=== PATIENT | male | born 1990 | race Caucasian/White ===

== ENCOUNTER 2024-05-08 21:25 | Emergency (ER) | payer OTHER, SELFPAY ==
[2024-05-08] VITALS (23 sets, daily range): BP systolic 105–153; BP diastolic 66–111; PULSE 77–102; O2SAT 94–97; BMI 36.0
--- NOTE | 2024-05-08 21:29 | ECG_ITS ---
[facility] Test Date: 2024-05-08 Pat Name: LINO BRASHER Department: Room: - Gender: Male [employer] In[employer]: : 1990 Requested By: Order Number: [id number] Reading MD: KELLE CEBALLOS Measurements Intervals [place] Rate: 96 P: 68 ND: 144 QRS: 55 QRSD: 86 T: 53 QT: 338 QTc: 392 Interpretive Statements 1100 Sinus rhythm 9110 normal ECG No previous ECG available for comparison Electronically Signed On 05-09-2024 6:58:00 EST by KELLE CEBALLOS
--- NOTE | 2024-05-08 21:29 | XR_ITS ---
The [address] [address] Patient Name: LINO BRASHER MRN: [id number] date: 1990 Sex: M Assigned Patient Location: ER Current Patient Location: ED.MAIN Accession/Order Number: [id number] Exam Date: 05/08/2024 21:45 Report Date: 05/08/2024 23:19 At the request of: BRIAN DAVIS Procedure: XR chest 1V PORTABLE CHEST X-RAY. CLINICAL HISTORY: Fentanyl overdose COMPARISON: None. TECHNIQUE: Single AP portable chest radiograph. FINDINGS: TUBES AND LINES: None. LUNGS: Lungs are clear. PLEURA: No effusions or pneumothorax. HEART AND MEDIASTINUM: Within normal limits for portable technique. OSSEOUS STRUCTURES: No acute abnormality. XR/XR chest 1V IMPRESSION: No acute findings. Electronically authenticated by: JOSE L NATH Date: 05/08/2024 23:19
--- NOTE | 2024-05-08 21:39 | ED_ITS ---
HPI HPI - General Adult General Chief complaint: Overdose Stated complaint: OD Time Seen by Provider: 05/08/24 21:29 Source: patient and other Source information: EMS Mode of arrival: ambulance Limitations: altered mental status History of Present Illness HPI narrative: 33-year-old male presented for being unresponsive. Paramedics were called and they found an unresponsive person with sonorous breathing. The family had put him in the shower to try to wake him up but that was not successful. The paramedics gave 4 mg of Narcan and he awoke. He was released from residential yesterday. He is accompanied by law enforcement officers. Related Data Allergies Allergy/AdvReac Type Severity Reaction Status Date / Time No Known Drug Allergies Allergy Verified 05/08/24 21:31 Opioid HPI Opioid Management Most Recent Opioid Data: No Data to Display Review of Systems ROS Narrative A ten point review of systems is negative except as noted above. Exam Narrative Exam Narrative: Nurses note and vital signs reviewed and patient is not hypoxic. General: The patient appears in no acute respiratory distress. He is disheveled Skin: Warm, dry, no pallor noted. There is no rash noted. Head: Normocephalic, atraumatic Eye: Normal conjunctiva, no drainage, EOMI. PERRL Ears, Nose, Mouth, and Throat: oral mucosa is moist. Nares patent. Cardiovascular: Regular Rate and Rhythm, borderline tachycardia Respiratory: Patient is in no distress, no accessory muscle use, lungs are clear to auscultation, no wheezing, rales or rhonchi. Good air movement present Back: non-tender GI: Soft and nontender Musculoskeletal: The patient has no evidence of calf tenderness, no pitting edema, symmetrical pulses noted bilaterally Neurological: A&O x4, normal speech Psychiatric: Cooperative Constitutional Vital Signs, click to edit/add: Last Vital Signs Pulse 83 05/08/24 23:31 Resp 22 H 05/08/24 23:20 BP 114/88 05/08/24 23:31 Pulse Ox 95 05/08/24 23:43 O2 Del Method Room Air 05/08/24 21:40 O2 Flow Rate 2 05/08/24 21:40 Course Vital Signs Vital signs: Vital Signs Pulse Rate 101 H 05/08/24 21:27 Respiratory Rate 12 05/08/24 21:27 Blood Pressure 153/100 H 05/08/24 21:27 Pulse Oximetry 95 05/08/24 21:27 Oxygen Delivery Method Room Air 05/08/24 21:27 Pulse Rate 83 05/08/24 23:31 Respiratory Rate 22 H 05/08/24 23:20 Blood Pressure 114/88 05/08/24 23:31 Pulse Oximetry 95 05/08/24 23:43 Oxygen Delivery Method Room Air 05/08/24 21:40 Oxygen Delivery Flow Rate 2 05/08/24 21:40 Medical Decision Making MDM Narrative Medical decision making narrative: The patient had been given IV Narcan by the paramedics and did not require any further here. He is now awake and alert and ambulatory and able to be discharged home. His workup is negative. Treatment diagnosis and follow-up were discussed with the patient. Differential Diagnosis Differential Diagnosis: Narcotic overdose Lab Data Lab results reviewed: Yes I reviewed the patient's lab results Labs: Lab Results 05/08/24 Range/Units 21:59 WBC 11.7 H (4.0-11.0) 10^3/uL RBC 5.04 (4.70-6.10) 10^6/uL Hgb 15.2 (14.0-18.0) g/dL Hct 45.9 (42.0-54.0) % MCV 91.1 (80.0-94.0) fL MCH 30.2 (25.9-34.0) pg MCHC 33.1 (29.9-35.2) g/dL RDW 13.0 (11.0-15.0) % Plt Count 266 (150-450) 10^3/uL MPV 10.2 (9.5-13.5) fL Neut % (Auto) 81.1 H (43.0-75.0) % Lymph % (Auto) 13.2 L (20.5-60.0) % [place] % (Auto) 4.6 (1.7-12.0) % Eos % (Auto) 0.3 L (0.9-7.0) % Baso % (Auto) 0.3 (0.2-2.0) % Neut # (Auto) 9.4 H (1.4-6.5) 10^3/uL Lymph # (Auto) 1.5 (1.2-3.8) 10^3/uL [place] # (Auto) 0.5 (0.3-0.8) 10^3/uL Eos # (Auto) 0.0 (0.0-0.7) 10^3/uL Baso # (Auto) 0.0 (0.0-0.1) 10^3/uL Abs Immat Gran (auto) 0.06 H (0.00-0.03) 10^3/uL Imm/Tot Granulo (auto) 0.5 (0.0-0.5) % Sodium 142 (136-145) mmol/L Potassium 3.3 L (3.5-5.1) mmol/L Chloride 106 (98-107) mmol/L Carbon Dioxide 19.9 L (21.0-32.0) mmol/L Anion Gap 19.4 BUN 16.0 (7.0-18.0) mg/dL Creatinine 1.30 (0.70-1.30) mg/dL Est GFR ( Amer) >60 (>=60 mL/min/1.73m^2) Est GFR (Non-Af Amer) >60 (>=60 mL/min/1.73m^2) BUN/Creatinine Ratio 12.3 Glucose 142 H (74-106) mg/dL Calcium 8.7 (8.5-10.1) mg/dL Ethanol Quant 36 mg/dL Imaging Data CT scan - head: Radiologist's impression: ITS Impressions Chest X-Ray 05/08/24 21:29 IMPRESSION: No acute findings. Electronically authenticated by: JOSE L NATH Date: 05/08/2024 23:[address] 05/08/24 23:38 IMPRESSION: 1. No acute intracranial abnormality. No hemorrhage or mass effect. If there is concern for infarction, then MRI including diffusion imaging would be more sensitive. Electronically authenticated by: LAINE TORRES Date: 05/09/2024 00:46 ECG Data Attestation: I personally reviewed and interpreted this ECG as follows: (EKG on my interpretation shows normal sinus rhythm with rate of 96 and no acute change) Discharge Plan Discharge Chief Complaint: Overdose Clinical Impression: Accidental fentanyl overdose Patient Disposition: Home, Self-Care Time of Disposition Decision: 01:12 Condition: Good Mode of Transportation: Private Vehicle Print Language: Finnish Instructions: Opioid Use Disorder (ED) Referrals: Physician,Non-Staff, [Primary Care Provider] - 1 week
[2024-05-08] MEDS: ONDANSETRON PF 4 MG/2 ML VIAL IV (21:52)
[2024-05-08 22:17] LABS: Basophils Percent Auto 0.3 % (0.2-2.0); Eosinophils Percent Auto 0.3 % (0.9-7.0); Hematocrit 45.9 % (42.0-54.0); Hemoglobin 15.2 g/dL (14.0-18.0); Immature Granulocytes Abs Auto 0.06 10^3/uL (0.00-0.03); Immature Granulocytes Pct Auto 0.5 % (0.0-0.5); Lymphocytes Absolute Auto 1.5 10^3/uL (1.2-3.8); Lymphocytes Percent Auto 13.2 % (20.5-60.0); Mean Corpuscular HGB Conc 33.1 g/dL (29.9-35.2); Mean Corpuscular Hemoglobin 30.2 pg (25.9-34.0); Mean Corpuscular Volume 91.1 fL (80.0-94.0); Mean Platelet Volume 10.2 fL (9.5-13.5); Monocytes Absolute Auto 0.5 10^3/uL (0.3-0.8); Monocytes Percent Auto 4.6 % (1.7-12.0); Neutrophils Absolute Auto 9.4 10^3/uL (1.4-6.5); Neutrophils Percent Auto 81.1 % (43.0-75.0); Platelet Count 266 10^3/uL (150-450); Red Blood Count 5.04 10^6/uL (4.70-6.10); White Blood Count 11.7 10^3/uL (4.0-11.0)
[2024-05-08 22:25] LABS: Anion Gap 19.4; BUN Creatinine Ratio 12.3; Calcium 8.7 mg/dL (8.5-10.1); Carbon Dioxide 19.9 mmol/L (21.0-32.0); Chloride 106 mmol/L (98-107); Estimated GFR (African America >60 (>=60 mL/min/1.73m^2); Estimated GFR (Non-African Ame >60 (>=60 mL/min/1.73m^2); Glucose 142 mg/dL (74-106); Potassium 3.3 mmol/L (3.5-5.1); Sodium 142 mmol/L (136-145)
[2024-05-08 22:27] LABS: Ethanol 36 mg/dL
--- NOTE | 2024-05-08 23:38 | CT_ITS ---
The [address] [address] Patient Name: LINO BRASHER MRN: [id number] date: 1990 Sex: M Assigned Patient Location: ER Current Patient Location: ER Accession/Order Number: [id number] Exam Date: 05/08/2024 23:59 Report Date: 05/09/2024 00:46 At the request of: BRIAN DAVIS Procedure: CT head/brain wo con EXAM: CT head/brain wo con INDICATION: 33 years old; Male. Fentanyl overdose. Blurred vision. TECHNIQUE: CT Head (ax/cor/sag reformats). Ionizing radiation dose reduced via iterative reconstruction/FBP blend and body size kV/mA adjustment. Comparison: Report of a head CT dated 10/30/2008. The prior study is not available for direct review. FINDINGS: POSTOPERATIVE CHANGES: None. BRAIN PARENCHYMA: No intraparenchymal or extra-axial hemorrhage. No mass effect. No midline shift or herniation. Normal sarah/white differentiation. VENTRICLES/EXTRA-AXIAL SPACES: Normal for patient's age. SINUSES/MASTOIDS: There is mucoperiosteal thickening in the visualized portion the maxillary sinus on the left. Remaining visualized sinuses are clear. The paranasal sinuses are not completely included. Dana bullosa bilaterally. Mastoids and middle ears are clear. The mastoid tips are not completely included. MSK: No displaced or depressed calvarial fracture. OTHER: No hyperdense intraluminal thrombus is present. The visualized portion of the right vertebral artery is larger than the left. CT/CT head/brain wo con IMPRESSION: 1. No acute intracranial abnormality. No hemorrhage or mass effect. If there is concern for infarction, then MRI including diffusion imaging would be more sensitive. Electronically authenticated by: LAINE TORRES Date: 05/09/2024 00:46
[2024-05-08] MEDS: ACETAMINOPHEN 325 MG TABLET 650 MG PO (23:55)
[2024-05-09] VITALS (9 sets, daily range): BP systolic 100–150; BP diastolic 71–114; PULSE 78; TEMP 36.6; O2SAT 89–97
== END 2024-05-09 01:23 | disposition home or self-care (01) ==
PROVIDERS: Emergency Provider Emergency Medicine; Family Provider Family Medicine
DX: T40.411A Poisoning by fentanyl or fentanyl analogs, accidental (unintentional), initial encounter (principal); R40.4 Transient alteration of awareness
CPT/HCPCS: 36415; 70450; 71045; 80048; 80320; 85025; 93005; 96374; 99285; J2405